=== PATIENT | female | born 1940 | race African-American/Black ===

== ENCOUNTER 2019-05-04 21:42 | Emergency (ER) | payer MEDICARE, MEDICAID ==
[~2019-05-04] VITALS: Ht 162.6 cm; Wt 86.2 kg
--- NOTE | 2019-05-04 22:46 | NUR ---
RT SHORT ARM SPLINT W/ SLING APPLIED. PT TOLERATED PROCEDURE WELL W/ NAD NOTED.
[2019-05-04] MEDS ORDERED: DEXAMETHASONE SOD PHOSPHATE 10 MG/ML VIAL ONE (22:56)
[2019-05-04] MEDS ORDERED: DEXAMETHASONE SOD PHOSPHATE 4 MG/ML VIAL IM ONE (23:00)
--- NOTE | 2019-05-04 23:03 | NUR ---
Patient ambulatory w/ steady gait, resp even & unlabored w/ nad noted. Family at bedside. Patient discharged to home in stable condition. Written and verbal after care instructions given. Patient verbalizes understanding of instruction.
[2019-05-04 23:04] VITALS: BP 168/97
== END 2019-05-04 23:04 | disposition home or self-care (01) ==
LOC: ER 21:46
DX: M71.541 Other bursitis, not elsewhere classified, right hand (principal); I10 Essential (primary) hypertension; E11.9 Type 2 diabetes mellitus without complications
CPT/HCPCS: 73130; 99283; J1100